=== PATIENT | female | born 1940 | race Two or more races ===

== ENCOUNTER 2018-08-11 16:03 | Observation (INO) | payer OTHER, MEDICAID ==
[2018-08-11] MEDS: NS 500 ML IV ONE ×2 (17:55→19:30)
[2018-08-11] MEDS ORDERED: oxyCODONE IR 5 MG TAB PO ONE (18:00)
[2018-08-11] MEDS ORDERED: AZITHROMYCIN IV 500 MG in D5W 250 ML IV ONE (18:04)
[2018-08-11 18:08] LABS: PLATELET COUNT 378 10^3/uL (150-400)
--- NOTE | 2018-08-11 18:18 | EDPHY ---
H & P Time Seen by Provider: 08/11/18 16:29 HPI/ROS: HPI Worsening cough, this. 77-year-old female by private vehicle. This patient reports that she has had a cough for the last 2 weeks. She reports over the last several days it has worsened. She describes it as productive of a greenish yellow sputum. She has had shortness of breath associated with her cough. She reports that she has also felt intermittently feverish over the last 2 days and has felt very fatigued today. ROS: Constitutional: As above. Eyes: No discharge. No changes in vision. ENT: No sore throat. No nasal congestion or rhinorrhea. Respiratory: As above. Cardiac: No chest pain, no palpitations. Gastrointestinal: No abdominal pain, no vomiting, no diarrhea. Genitourinary: No hematuria. No dysuria or increased frequency with urination. Musculoskeletal: No back pain. No neck pain. No myalgias or arthralgias. Skin: No rashes. Neurological: No headache. No focal weakness or altered sensation. Past medical history: Hypertension, diabetes, gastric ulcers, hyperlipidemia. Social history: Nonsmoker. No alcohol. She lives with her grandson's. Physical Exam: General Appearance: Alert, no distress. This patient is responding to questions appropriately and in full sentences. This patient appears well- hydrated and well-nourished. Eyes: Pupils equal and round no pallor or injection. No lid edema, erythema or injection. Respiratory: There are no retractions, lungs are clear to auscultation except for fine crackles left base with moderate air movement bilaterally. Intermittent wet sounding cough. No tachypnea. Cardiovascular: Regular rate and rhythm. No murmur. Gastrointestinal: Abdomen is soft and nontender, no masses, bowel sounds normal. No focal tenderness at McBurney's point. No More sign. Neurological: Motor sensory function is grossly intact. Cranial nerves are normal. Gait is normal. Skin: Warm and dry, no rashes. Musculoskeletal: Neck is supple and nontender. Extremities are symmetrical. All joints range without pain or impingement. Psychiatric: No agitation. No depression. Database: EKG: EKG time is 5:46 p.m.; EKG shows a narrow complex normal sinus rhythm with a ventricular rate of approximately 80. The RI, QRS, QT intervals are within normal limits. There are no ST-T wave changes indicative of ischemic or injury pattern. No evidence of right heart strain. Interpreted by me. Imaging: Chest x-ray PA and lateral; the cardiac mediastinal silhouette is unremarkable. No pneumothorax. Significant for a left lingular, lower lobe infiltrate suggestive of pneumonia. No other acute cardiopulmonary disease process noted. Interpreted by me. Procedures: Emergency department course: Triage vital signs reviewed and are within normal limits. Pulse oximetry on room air is 92%. Patient's presentation is concerning for pneumonia. IV was placed. Started on IV normal saline with 500 cc to be given over the next hour. Blood cultures to be obtained. Chest x-ray to be obtained. Patient endorses workup. 6:15 p.m., patient re-evaluated, diagnosis of pneumonia discussed. She will be started on IV ceftriaxone and IV azithromycin in the emergency department, hospitalist paged for admission. 6:20 p.m., spoke with hospitalist Dr. Munguia. Case discussed in detail with him. He accepts this patient for admission. 7:25 p.m., patient's blood work reviewed, she will be given 5 units of IV regular insulin for hyperglycemia. She is not acidotic at this time. She will be given another 500 cc of IV normal saline. She is awaiting admission to the floor currently. Differential Diagnosis: The differential diagnosis on this patient includes but is not limited to pneumonia, influenza, viral bronchitis. This represents a partial list of diagnoses considered. These considerations are based on history, physical exam , past history, reassessment and diagnostic testing. Smoking Status: Never smoked Constitutional: Initial Vital Signs Temperature (C) 36.9 C 08/11/18 16:11 Heart Rate 98 08/11/18 16:11 Respiratory Rate 16 08/11/18 16:11 Blood Pressure 127/72 H 08/11/18 16:11 O2 Sat (%) 92 08/11/18 16:11 O2 Delivery Mode Room Air Allergies/Adverse Reactions: No Known Allergies Allergy (Verified 10/22/14 15:44) Home Medications: Medication Instructions Recorded Levemir Flexpen 25 units SC DAILY 03/08/14 Omeprazole [Prilosec 20 mg] 20 mg PO DAILY 03/08/14 buPROPion SR [Wellbutrin 150mg SR 150 mg PO BID 03/08/14 (*)] Insulin Detemir [Levemir] 45 unit SQ HS 08/11/18 Insulin NPH Human Isophane 0 unit SQ AD PRN 08/11/18 [Novolin N] Levothyroxine [Synthroid 200 mcg 200 mcg PO DAILY06 08/11/18 (*)] Amoxicillin/Clavulanate Pot 875 mg PO BID #10 tab 08/12/18 [Augmentin 875 MG TAB (*)] Azithromycin [Zithromax] 250 mg PO DAILY #4 tab 08/12/18 guaiFENesin [Mucinex 600 MG (*)] 600 mg PO BID tab.er 08/12/18 Medical Decision Making - Data Points Laboratory Results: Laboratory Results 08/11/18 17:41 08/11/18 17:41 Microbiology Results: MICROBIOLOGY 08/11/18 17:57 Nasal, Sinus - Swab Respiratory Panel (PCR) - Final No Organism Detected By Pcr Medications Given: Discontinued Medications Bupropion HCl (Wellbutrin Sr) 150 mg PO BID JEFFERY Stop: 02/07/19 20:59 Last Admin: 08/12/18 07:37 Dose: 150 mg Enoxaparin Sodium (Lovenox) 30 mg SC DAILY JEFFERY Stop: 02/08/19 08:59 Last Admin: 08/12/18 07:38 Dose: 30 mg Guaifenesin (Mucinex) 600 mg PO BID JEFFERY Stop: 02/07/19 20:59 Last Admin: 08/12/18 07:38 Dose: 600 mg Sodium Chloride (Ns) 500 mls @ 1,000 mls/hr IV EDNOW ONE PRN Reason: Protocol Stop: 08/11/18 16:58 Last Admin: 08/11/18 19:30 Dose: 500 mls Ceftriaxone Sodium 2 gm/ (Sodium Chloride) 50 mls @ 100 mls/hr IV EDNOW ONE PRN Reason: Protocol Stop: 08/11/18 18:33 Last Admin: 08/11/18 18:54 Dose: 50 mls Azithromycin 500 mg/ Sodium (Chloride) 255 mls @ 255 mls/hr IV EDNOW ONE PRN Reason: Protocol Stop: 08/11/18 19:44 Last Admin: 08/11/18 19:30 Dose: 255 mls Sodium Chloride (Ns) 500 mls @ 0 mls/hr IV EDNOW ONE; Wide Open PRN Reason: Protocol Stop: 08/11/18 19:25 Last Admin: 08/11/18 19:45 Dose: 500 mls Azithromycin 500 mg/ Sodium (Chloride) 255 mls @ 255 mls/hr IV DAILY JEFFERY PRN Reason: Protocol Stop: 09/11/18 08:59 Last Admin: 08/12/18 08:37 Dose: 255 mls Ceftriaxone Sodium/Dextrose (Rocephin 1 Gm (Premix)) 50 mls @ 100 mls/hr IV DAILY JEFFERY PRN Reason: Protocol Stop: 09/11/18 08:59 Last Admin: 08/12/18 09:52 Dose: 50 mls Sodium Chloride (Ns) 1,000 mls @ 100 mls/hr IV CONT JEFFERY Stop: 02/07/19 20:44 Last Admin: 08/12/18 07:37 Dose: 1,000 mls Insulin Glargine (Lantus Syringe) 15 units SC HS [facility] Stop: 02/07/19 21:59 Last Admin: 08/11/18 22:54 Dose: 15 units Insulin Glargine (Lantus Syringe) 10 units SC DAILY JEFFERY Stop: 02/08/19 08:59 Last Admin: 08/12/18 07:39 Dose: 10 units Insulin Human Lispro (Humalog Lispro) 0 unit SC TIDMEAL JEFFERY PRN Reason: Protocol Stop: 02/08/19 07:59 Last Admin: 08/12/18 12:57 Dose: 4 units Insulin Human Regular (Humulin R) 5 unit IVP ONCE ONE Stop: 08/11/18 19:16 Last Admin: 08/11/18 19:31 Dose: 5 units Levothyroxine Sodium (Synthroid) 200 mcg PO DAILY06 [facility] Stop: 02/08/19 05:59 Last Admin: 08/12/18 05:13 Dose: 200 mcg Melatonin (Melatonin) 3 mg PO HS [facility] Stop: 02/07/19 21:59 Last Admin: 08/11/18 22:54 Dose: 3 mg Ondansetron HCl (Zofran) 4 mg IVP Q4HRS PRN PRN Reason: Nausea/Vomiting, Can't Take PO Stop: 02/07/19 20:32 Last Admin: 08/12/18 10:44 Dose: 4 mg Ondansetron HCl (Zofran Odt) 4 mg PO Q4HRS PRN PRN Reason: Nausea/Vomiting, Use 1st Stop: 02/07/19 20:32 Last Admin: 08/12/18 09:57 Dose: 4 mg Oxycodone HCl (Oxycodone Ir) 5 mg PO EDNOW ONE Stop: 08/11/18 18:01 Last Admin: 08/11/18 18:03 Dose: 5 mg Oxycodone/Acetaminophen (Percocet 5/325) 1 - 2 tab PO Q4HRS PRN PRN Reason: Pain, Severe Able to Take PO Stop: 08/21/18 20:32 Last Admin: 08/12/18 07:50 Dose: 1 tab Pantoprazole Sodium (Protonix) 40 mg PO DAILY JEFFERY Stop: 02/08/19 08:59 Last Admin: 08/12/18 07:37 Dose: 40 mg Departure - Departure Disposition: [facility] Acute Clinical Impression: Pneumonia, Hyperglycemia
[2018-08-11] MEDS ORDERED: AZITHROMYCIN IV 500 MG in NS 250 ML IV ONE (18:45)
[2018-08-11] MEDS ORDERED: INSULIN REGULAR HUMAN 100 UNIT/ML UNIT IVP ONE (19:15)
[2018-08-11] MEDS ORDERED: NS 500 ML IV ONE (19:24)
[2018-08-11] MEDS ORDERED: OXYCODONE/APAP 5/325 TAB PO PRN (20:33)
[2018-08-11] MEDS ORDERED: ONDANSETRON DISINTEGRATING 4 MG TAB PO PRN (20:33)
[2018-08-11] MEDS ORDERED: ACETAMINOPHEN 325 MG TAB PO PRN (20:33)
[2018-08-11] MEDS ORDERED: ONDANSETRON 4 MG/2 ML VIAL IVP PRN (20:33)
[2018-08-11] MEDS ORDERED: BENZONATATE 100 MG CAP PO PRN (20:36)
[2018-08-11] MEDS ORDERED: D50W 25 GM/50 ML VIAL IVP PRN (20:36)
--- NOTE | 2018-08-11 20:37 | PDGENHP ---
History and Physical - Chief Complaint cough - History of Present Illness 77yo F with insulin dependent diabetes, HTN presents with 2 weeks of cough. Has been coughing up green sputum. She has been feeling very weak and lethargic and also been having significant chills which prompted her to come in for evaluation. She has been having headaches but no fevers. Denies shortness of breath. No sick contacts. She did not get the flu vaccine. No recent travel. No rashes, nausea, vomiting, or diarrhea. In the ED, she had a slight leukocytosis and elevated creatinine. A CXR shows a left lower lobe infiltrate. She received IV ceftriaxone and azithromycin. She is being admitted for further care. Case discussed with ED physician Candace Stephenson. History Information - Allergies/Home Medication List Allergies/Adverse Reactions: No Known Allergies Allergy (Verified 10/22/14 15:44) Home Medications: Levemir Flexpen 25 units SC DAILY 03/08/14 [Last Taken 08/11/18] Omeprazole [Prilosec 20 mg] 20 mg PO DAILY 03/08/14 [Last Taken 03/08/14] buPROPion SR [Wellbutrin Sr] 150 mg PO BID 03/08/14 [Last Taken 03/07/14] Insulin Detemir [Levemir] 45 unit SQ HS 08/11/18 [Last Taken Unknown] Insulin NPH Human Isophane [Novolin N] 0 unit SQ AD PRN 08/11/18 [Last Taken Unknown] Levothyroxine [Synthroid 200 mcg (*)] 200 mcg PO DAILY06 08/11/18 [Last Taken Unknown] I have personally reviewed and updated: family history, medical history, social history, surgical history - Past Medical History Additional medical history: insulin dependent diabetes, HTN, osteoarthritis, hypothyroid, gerd, depression - Surgical History Reports: no pertinent surgical hx - Family History Positive for: non-pertinent - Social History Smoking Status: Never smoked Alcohol Use: None Drug Use: None Additional social history: Lives with 2 grandkids. Independent. Review of Systems Review of Systems: ROS: 10pt was reviewed & negative except for what was stated in HPI & below Physical Exam Physical Exam: Temp Pulse Resp BP Pulse Ox 37.4 C 89 20 137/62 H 92 08/11/18 19:38 08/11/18 19:59 08/11/18 19:59 08/11/18 19:59 08/11/18 19:59 Constitutional: no apparent distress, appears nourished Eyes: PERRL, anicteric sclera, EOMI Ears, Nose, Mouth, Throat: moist mucous membranes, hearing normal, ears appear normal, no oral mucosal ulcers Cardiovascular: regular rate and rhythym, no murmur, rub, or gallop, No edema Respiratory: no respiratory distress, reduced air movement (left base), rhonchi , other (paroxysms of coughing), No expiratory wheeze Gastrointestinal: normoactive bowel sounds, soft, non-tender abdomen, no palpable masses Genitourinary: no bladder fullness, no bladder tenderness Skin: warm, normal color, no rashes or abrasions, no fluctuance, no induration, No mottled Musculoskeletal: full muscle strength, no muscle tenderness, normal joint ROM, no joint effusions Neurologic: AAOx3 Psychiatric: interacting appropriately Lab Data & Imaging Review 08/11/18 17:41 08/11/18 17:41 WBC 13.76 10^3/uL (3.80-9.50) H 08/11/18 17:41 RBC 4.50 10^6/uL (4.18-5.33) 08/11/18 17:41 Hgb 12.9 g/dL (12.6-16.3) 08/11/18 17:41 Hct 39.2 % (38.0-47.0) 08/11/18 17:41 MCV 87.1 fL (81.5-99.8) 08/11/18 17:41 MCH 28.7 pg (27.9-34.1) 08/11/18 17:41 MCHC 32.9 g/dL (32.4-36.7) 08/11/18 17:41 RDW 13.4 % (11.5-15.2) 08/11/18 17:41 Plt Count 378 10^3/uL (150-400) 08/11/18 17:41 MPV 11.1 fL (8.7-11.7) 08/11/18 17:41 Neut % (Auto) 82.6 % (39.3-74.2) H 08/11/18 17:41 Lymph % (Auto) 12.0 % (15.0-45.0) L 08/11/18 17:41 Scott % (Auto) 4.8 % (4.5-13.0) 08/11/18 17:41 Eos % (Auto) 0.1 % (0.6-7.6) L 08/11/18 17:41 Baso % (Auto) 0.1 % (0.3-1.7) L 08/11/18 17:41 Nucleat RBC Rel Count 0.0 % (0.0-0.2) 08/11/18 17:41 Absolute Neuts (auto) 11.36 10^3/uL (1.70-6.50) H 08/11/18 17:41 Absolute Lymphs (auto) 1.65 10^3/uL (1.00-3.00) 08/11/18 17:41 Absolute Monos (auto) 0.66 10^3/uL (0.30-0.80) 08/11/18 17:41 Absolute Eos (auto) 0.02 10^3/uL (0.03-0.40) L 08/11/18 17:41 Absolute Basos (auto) 0.02 10^3/uL (0.02-0.10) 08/11/18 17:41 Absolute Nucleated RBC 0.00 10^3/uL (0-0.01) 08/11/18 17:41 Immature Gran % 0.4 % (0.0-1.1) 08/11/18 17:41 Immature Gran # 0.05 10^3/uL (0.00-0.10) 08/11/18 17:41 Sodium 130 mEq/L (135-145) L 08/11/18 17:41 Potassium 3.7 mEq/L (3.5-5.2) 08/11/18 17:41 Chloride 91 mEq/L (97-110) L 08/11/18 17:41 Carbon Dioxide 23 mEq/l (22-31) 08/11/18 17:41 Anion Gap 16 mEq/L (6-14) H 08/11/18 17:41 BUN 29 mg/dL (7-23) H 08/11/18 17:41 Creatinine 1.3 mg/dL (0.6-1.0) H 08/11/18 17:41 Estimated GFR 40 08/11/18 17:41 Glucose 425 mg/dL (70-100) H 08/11/18 17:41 POC Glucose 275 mg/dL (70-100) H 08/11/18 20:07 Calcium 9.0 mg/dL (8.5-10.4) 08/11/18 17:41 Interpretation: CXR: left lower lobe infiltrate, no effusion, normal heart size , no pulmonary edema (interp by me) EKG additional interpertation: ECG: NSR, LVH, early R wave progression, no acute ischemic ST-T wave changes, no right heart strain Assessment & Plan Assessment: 77yo F with insulin dependent diabetes, HTN presents with 2 weeks of cough found to have pneumonia. Plan: #Community acquired pneumonia: Involving left lower lobe. She is in moderate risk group based on CURB-65 score, indicating inpatient treatment. She is not hypoxic. - Blood cultures drawn in ED - Respiratory viral PCR pending - Continue ceftriaxone 1g q24h, azithromycin 500mg daily #Cough - Tessalon pearls, mucinex #Diabetes: Typically takes 25u levemir in AM and 45u in PM. - Decrease long-acting to 10u in AM, 15u in PM due to minimal PO intake - SSI with regular BG checks #HTN: BP elevated on admit, now improved. Continue home meds. #Hypothyroid: Home LT4 replacement. VTE ppx: LMWH Code: full Diet: carb controlled Dispo: Admit under observation, re-eval need for admission tomorrow
[2018-08-11] MEDS: guaiFENesin 600 MG TAB.ER PO SCH (21:20)
[2018-08-11] MEDS: buPROPion SR 150 MG TAB PO SCH (21:20)
[2018-08-11] MEDS: NS 1,000 ML IV SCH (21:20)
[2018-08-11] MEDS ORDERED: MELATONIN 3 MG TAB PO SCH (22:00)
[2018-08-11] MEDS ORDERED: INSULIN GLARGINE 100 UNITS/ML UNIT SC SCH (22:00)
--- NOTE | 2018-08-11 22:40 | CPEKG ---
Test Reason : OPEN Blood Pressure : / mmHG Vent. Rate : 094 BPM Atrial Rate : 094 BPM P-R Int : 151 ms QRS Dur : 074 ms QT Int : 333 ms P-R-T Axes : 001 -12 045 degrees QTc Int : 417 ms Sinus rhythm Abnormal R-wave progression, early transition LVH by voltage Confirmed by Candace Stephenson ([id number]) on 08/11/2018 10:39:38 PM Referred By: Candace Stephenson Confirmed By:Candace Stephenson
[2018-08-12] MEDS ORDERED: LEVOTHYROXINE 200 MCG TAB PO SCH (06:00)
[2018-08-12] MEDS: buPROPion SR 150 MG TAB PO SCH (07:37)
[2018-08-12] MEDS: NS 1,000 ML IV SCH (07:37)
[2018-08-12] MEDS: INSULIN LISPRO 100 UNIT/ML SC SCH ×2 (07:38→12:57)
[2018-08-12] MEDS: guaiFENesin 600 MG TAB.ER PO SCH (07:38)
[2018-08-12] MEDS ORDERED: INSULIN GLARGINE 100 UNITS/ML UNIT SC SCH (09:00)
[2018-08-12] MEDS ORDERED: AZITHROMYCIN IV 500 MG in NS 250 ML IV SCH (09:00)
[2018-08-12] MEDS ORDERED: ENOXAPARIN 30 MG/0.3 ML SYR SC SCH (09:00)
[2018-08-12] MEDS ORDERED: PANTOPRAZOLE SODIUM 40 MG TAB PO SCH (09:00)
--- NOTE | 2018-08-12 11:17 | ASMTCMCOM ---
CM Note CM Note Notes: Pt is a 77 y/o female admitted for pneumonia. Pt will most likely d/c independent when medically stable. No therapies ordered at this time. Pt was living independently with her 2 grand kids prior to coming to the hospital. CM available for changes. Plan: Independent Date Signed: 08/12/2018 11:16 AM Electronically Signed By:TOMAS Lara
[2018-08-12 12:03] VITALS: BP 138/67
--- NOTE | 2018-08-13 06:38 | GDS ---
[f rep st] DISCHARGE SUMMARY DISCHARGE DIAGNOSES: 1. Community-acquired pneumonia. 2. Cough. 3. Diabetes. 4. Hypertension. 5. Hypothyroidism. PHYSICAL EXAM: GENERAL: The patient is alert. VITAL SIGNS: Afebrile at 36.6, pulse of 78, respira tory rate 16, blood pressure 138/67. She is saturating 91% on room air. I have seen and evaluated the patient on the day of discharge. HOSPITAL COURSE: The patient is a 77-year-old female who presents to the emergency room with complai nts of cough. She was evaluated and diagnosed with: 1. Community-acquired pneumonia. During this hospitalization she was treated with Rocephin as well as azithromycin. She will be discharged with Augmentin and azithromycin to be continued in the outpa tient setting. 2. Cough. This has significantly improved. 3. History of hypertension. Her home medications have been continued during this hospital course an d at the time of disposition. 4. Hypothyroidism. Home meds again will be continued. 5. Diabetes. Her Levemir will be re-initiated at the time of discharge. FOLLOWUP: Will be with her primary care physician. DISCHARGE MEDICATIONS: Please refer to EMR form. The patient has received a prescription for Augmen tin as well as azithromycin. I have not adjusted any of her other previously prescribed home medicat ions to the best of my knowledge. /[id number]/MODL
== END 2018-08-12 14:01 | disposition home or self-care (01) ==
LOC: INTOOBSV 18:20 → F3E 20:32
PROVIDERS: ADMIT Internal Medicine; ATTEND Family Medicine
DX: J18.9 Pneumonia, unspecified organism (principal); R05 Cough; E86.0 Dehydration; E11.9 Type 2 diabetes mellitus without complications; I10 Essential (primary) hypertension; E03.9 Hypothyroidism, unspecified; E78.5 Hyperlipidemia, unspecified; Z79.4 Long term (current) use of insulin
CPT/HCPCS: 71046; 93005; 96361; 96372; 96374; 96375; 96376; 99285; G0378; J0456; J0696; J1650; J1815; J2405

== ENCOUNTER 2018-11-12 12:19 | Emergency (ER) | payer OTHER, MEDICAID | END 2018-11-12 13:16 | disposition home or self-care (01) ==